=== PATIENT | female | born 1990 | race Caucasian/White ===

== ENCOUNTER 2017-02-21 19:12 | Observation (INO) | payer OTHER, SELFPAY ==
[2017-02-21] MEDS ORDERED: Sodium Chloride 0.9% 1000 ML 1,000 ML IV STA ×2 (19:30→19:45)
[2017-02-21] MEDS ORDERED: Zosyn INJ 4.5 GM in D5w 100ML Mini Bag 100 ML 100 ML IV ONE (19:33)
--- NOTE | 2017-02-21 19:40 | ERPHSYRPT ---
- History of Present Illness Time Seen by Provider: 02/21/17 19:25 Source: patient Exam Limitations: clinical condition Physician History: PATIENT COMPLAINS OF CONFUSION AND DISORIENTATION AFTER USING METHAMPHETAMINE, AND SUBOXONE OVER THE PAST WEEK. HAS MULTIPLE SORES OVER FACE, EARS AND TRUNK FROM PICKING HER SKIN. DENIES COUGH, FEVER OR CHILLS. PATIENT ADMITS TO PRODUCTIVE COUGH YELLOW SPUTUM FOR WEEKS. Timing/Duration: today Severity: moderate Character of Deficits: other (CONFUSION, DISORIENTATION) Deficits: no difficulties Baseline/Normal Cognition: alert oriented x 3 Current Cognition: alert oriented x 3 Baseline Gait: walks w/o assistance Associated Symptoms: confusion (TRANSIENT) Allergies/Adverse Reactions: aspirin Allergy (Mild, Verified 02/21/17 19:44) ibuprofen Allergy (Unknown, Verified 02/21/17 19:44) naproxen sodium [From Aleve] Allergy (Unknown, Verified 02/21/17 19:44) NSAIDS (Non-Steroidal Anti-Inflamma Allergy (Verified 02/21/17 19:44) tramadol HCl [From Ultram] Allergy (Verified 02/21/17 19:44) Home Medications: Alprazolam 1 mg [Xanax 1 mg] 1 mg PO DAILY 02/21/17 [History] Buprenorphine HCl/Naloxone HCl [Suboxone 2 mg-0.5 mg Tablet] 1 each SL DAILY 09/29 [History] Hx Tetanus, Diphtheria Vaccination/Date Given: No Hx Influenza Vaccination/Date Given: No Hx Pneumococcal Vaccination/Date Given: No - Review of Systems Constitutional: No Fever, No Chills Eyes: No Symptoms Ears, Nose, & Throat: No Symptoms Respiratory: No Symptoms, No Cough, No Dyspnea Cardiac: No Symptoms, No Chest Pain, No Edema, No Syncope Abdominal/Gastrointestinal: No Symptoms, No Abdominal Pain, No Nausea, No Vomiting, No Diarrhea Genitourinary Symptoms: No Symptoms, No Dysuria Musculoskeletal: No Symptoms, No Back Pain, No Neck Pain Skin: No Symptoms, No Rash Neurological: Other (CONFUSION, DISORIENTATION), No Dizziness, No Focal Weakness , No Sensory Changes Psychological: No Symptoms Endocrine: No Symptoms All Other Systems: Reviewed and Negative - Past Medical History Pertinent Past Medical History: Yes Neurological History: No Pertinent History ENT History: No Pertinent History Cardiac History: No Pertinent History Respiratory History: No Pertinent History Endocrine Medical History: No Pertinent History Musculoskeletal History: No Pertinent History GI Medical History: Hepatitis History: No Pertinent History Psycho-Social History: No Pertinent History Female Reproductive Disorders: No Pertinent History Other Medical History: OPIATE ADDICTION - Past Surgical History Past Surgical History: Yes Neuro Surgical History: No Pertinent History Cardiac: No Pertinent History Respiratory: No Pertinent History Gastrointestinal: No Pertinent History Genitourinary: No Pertinent History Musculoskeletal: No Pertinent History Female Surgical History: Section - Social History Smoking Status: Current every day smoker How long have you smoked: 10 YEARS Exposure to second hand smoke: Yes Drug Use: bath salts Patient Lives Alone: No - Female History Hx Now: No - Nursing Vital Signs Nursing Vital Signs: Initial Vital Signs Temperature 100.1 F Temperature Source Oral Pulse Rate 144 Respiratory Rate 18 Blood Pressure [] 136/70 Pain Intensity 0 - Chrissy Coma Scale Best Eye Response (Chrissy): (4) open spontaneously Best Verbal Response (Porcupine): (5) oriented Best Motor Response (Porcupine): (6) obeys commands Chrissy Total: 15 - Physical Exam General Appearance: no apparent distress, alert Eye Exam: bilateral eye: PERRL, EOMI, other (MULTIPLE ULCERATONS IN DIFFERENT STAGES OF HEALILNG OVER BILAT AURICLES) Ears, Nose, Throat Exam: normal ENT inspection, moist mucous membranes, other ( ABRASIONS OVER LIPS AND FACE) Neck Exam: normal inspection, non-tender, supple Respiratory: normal breath sounds, lungs clear, airway intact, No respiratory distress Cardiovascular: regular rate/rhythm, tachycardia, No edema Gastrointestinal: soft, normal bowel sounds (NONTENDER), No tenderness, No distention Back Exam: normal inspection, normal range of motion Extremity Exam: other (DIFFUSE ABRASIONS ULCERATIONS, OVER BILAT LEGS SURROUNDING ERYTHEMA), No pedal edema Peripheral Pulses: carotid (R): 2+, carotid (L): 2+, femoral (R): 2+, femoral (L ): 2+, dorsalis-pedis (R): 2+, dorsalis-pedis (L): 2+ 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, 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: normal hearing, tongue midline Coordination/Gait: normal finger to nose, normal gait Motor/Sensory: no motor deficit DTR: bicep (R): 2+, bicep (L): 2+, tricep (R): 2+, tricep (L): 2+, knee (R): 2+ , knee (L): 2+ Skin Exam: normal color, warm, dry, No rash SpO2 Interpretation: normal SpO2: 98 - Course EKG Interpreted by Me: RATE, Sinus Rhythm, Sinus Tach (RATE 127), NORMAL AXIS - Radiology Exams Chest X-ray Interpretation: Interpreted by me (RIGHT LOWER LOBE INFILTRATE) Ordered Tests: Active Orders 24 hr Category Date Time Status Bedrest ROUTINE Activity 02/21/17 22:46 Ordered Admission/Status Order ROUTINE Care 02/21/17 22:46 Ordered Director Of Loss Prevention ROUTINE Care 02/21/17 22:48 Ordered Code Status Order ROUTINE Care 02/21/17 22:46 Ordered EKG-ER Only STAT Care 02/21/17 19:30 Active IV Insertion ROUTINE Care 02/21/17 22:46 Ordered IV Insertion STAT Care 02/21/17 19:30 Active Implement Pneumonia Pathway ROUTINE Care 02/21/17 22:46 Ordered Pulse Oximetry (ED) STAT Care 02/21/17 19:30 Active Vital Signs .q15mx2,q3omx2,q1hx2,[id number] Care 02/21/17 22:46 Ordered Regular Diet Diet 02/21/17 Breakfast Ordered CHEST 1 VIEW (PORTABLE) Stat Exams 02/21/17 19:48 Taken ACETAMINOPHEN Stat Lab 02/21/17 20:00 Completed BLOOD CULTURE Stat Lab 02/21/17 20:00 Received CBC W DIFF Stat Lab 02/21/17 20:00 Completed CMP Stat Lab 02/21/17 20:00 Completed Ethyl Alcohol,Urine Stat Lab 02/21/17 20:35 Completed HCG,QUALITATIVE URINE Stat Lab 02/21/17 20:01 Completed Lactic Acid Stat Lab 02/21/17 20:00 Completed SALICYLATE Stat Lab 02/21/17 20:00 Completed TROPONIN Q3H Lab 02/21/17 20:15 Completed TROPONIN Q3H Lab 02/21/17 23:15 Ordered TROPONIN Q3H Lab 02/22/17 02:15 Ordered TROPONIN Q3H Lab 02/22/17 05:15 Ordered TROPONIN Q3H Lab 02/22/17 08:15 Ordered UA W/ MICROSCOPIC Stat Lab 02/21/17 20:01 Completed Urine Triage Profile Stat Lab 02/21/17 20:01 Completed Transfer Order Routine Transfer 02/21/17 22:46 Ordered Medication Summary Generic Name Dose Route Start Last Admin Trade Name Ewa PRN Reason Stop Dose Admin Acetaminophen 650 mg 02/21/17 22:51 Tylenol 325 Mg PO 03/23/17 22:50 Q4H PRN PRN PAIN AND/OR FEVER Dextrose/Sodium Chloride 1,000 mls @ 150 mls/hr 02/21/17 23:00 Dextrose 5% -0.45 Nacl 1000 Ml IV 03/23/17 22:59 .Q6H40M DIANA Azithromycin 250 mls @ 125 mls/hr 02/22/17 10:00 Zithromax 500 Mg/ 250 Ml Nacl Premix IV 03/24/17 09:59 Q24H10 DIANA Piperacillin Sod/Tazobactam Sod 100 mls @ 100 mls/hr 02/22/17 00:00 Zosyn 3.375gm/100 Ml D5w IV 03/24/17 00:00 Q6HT DIANA Discontinued Medications Generic Name Dose Route Start Last Admin Trade Name Ewa PRN Reason Stop Dose Admin Sodium Chloride 1,000 mls @ 999 mls/hr 02/21/17 19:30 02/21/17 19:59 Sodium Chloride 0.9% 1000 Ml IV 02/21/17 20:30 999 mls/hr .Q1H1M STA Administration Piperacillin Sod/Tazobactam 100 mls @ 100 mls/hr 02/21/17 19:33 02/21/17 20: 00 Sod 4.5 gm/ Dextrose IV 02/21/17 20:32 100 mls/hr STAT ONE Administration Sodium Chloride 1,000 mls @ 999 mls/hr 02/21/17 19:45 02/21/17 21:18 Sodium Chloride 0.9% 1000 Ml IV 02/21/17 20:45 999 mls/hr .Q1H1M STA Administration Sodium Chloride Confirm 02/21/17 19:52 Sodium Chloride 0.9% 1000 Ml Administered 02/21/17 19:53 Dose 1,000 mls @ ud .ROUTE .STK-MED ONE Dextrose Confirm 02/21/17 19:53 D5w 100ml Mini Bag 100 Ml Administered 02/21/17 19:54 Dose 100 mls @ ud IV .STK-MED ONE Sodium Chloride Confirm 02/21/17 21:16 Sodium Chloride 0.9% 1000 Ml Administered 02/21/17 21:17 Dose 1,000 mls @ ud .ROUTE .STK-MED ONE Piperacillin Sod/Tazobactam Sod Confirm 02/21/17 19:53 Zosyn Inj Administered 02/21/17 19:54 Dose 4.5 gm IV .STK-MED ONE Lab/Rad Data: Laboratory Result Diagrams 02/21/17 20:00 02/21/17 20:00 Laboratory Results 02/21/17 02/21/17 02/21/17 Range/Units 20:35 20:15 20:01 WBC (4.0-10.5) K/mm3 RBC (4.1-5.4) M/mm3 Hgb (12.0-16.0) gm/dl Hct (35-47) % MCV (78-100) fl MCH (26-32) pg MCHC (32-36) g/dl RDW (11.5-14.0) % Plt Count (150-450) K/mm3 MPV (6-9.5) fl Gran % (36.0-66.0) % Lymphocytes % (24.0-44.0) % Monocytes % (0.0-12.0) % Eosinophils % (0.00-5.0) % Basophils % (0.0-0.4) % Basophils # (0-0.4) Sodium (136-145) mEq/L Potassium (3.5-5.1) mEq/L Chloride (98-107) mEq/L Carbon Dioxide (21-32) mEq/L Anion Gap (5-15) MEQ/L BUN (9-20) mg/dL Creatinine (0.55-1.30) mg/dl Estimated GFR ML/MIN Glucose (70-110) MG/DL Lactic Acid (0.4-2.0) Calcium (8.5-10.1) mg/dL Total Bilirubin (0.2-1.0) mg/dL AST (15-37) U/L ALT (12-78) U/L Alkaline Phosphatase (46-116) U/L Troponin I < 0.017 (0.000-0.056) ng/ml Serum Total Protein (6.4-8.2) gm/dL Albumin (3.4-5.0) g/dL Ur Collection Type Urine Color (YELLOW) Urine Appearance (CLEAR) Urine pH 5.5 (5-6) Ur Specific [place] (1.005-1.025) Urine Protein (Negative) Urine Glucose (UA) (NEGATIVE) mg/dL Urine Ketones (NEGATIVE) Urine Nitrite (NEGATIVE) Urine Bilirubin (NEGATIVE) Urine Urobilinogen (0-1) mg/dL Urine WBC (Auto) (NEGATIVE) Urine RBC (Auto) (0-5) Bharath/ul Urine Microscopic RBC (0-2) /HPF Urine Microscopic WBC (0-5) /HPF Ur Epithelial Cells (FEW) /HPF Urine Bacteria (NEGATIVE) /HPF Urine Mucus (NEGATIVE) /HPF Urine HCG, Qual NEGATIVE (Negative) Salicylates (2.8-20.0) mg/dl Urine Opiates Level (NEGATIVE) Ur Methadone (NEGATIVE) Acetaminophen (10-30) ug/ml Urine Barbiturates (NEGATIVE) Ur Phencyclidine (PCP) (NEGATIVE) Urine Amphetamine (NEGATIVE) U Benzodiazepine Level (NEGATIVE) Urine Cocaine (NEGATIVE) Urine Marijuana (THC) (NEGATIVE) Urine Ethyl Alcohol 3 (0.00-20) mg/dl Specimen Received 02/21/17 02/21/17 02/21/17 Range/Units 20:01 20:01 20:00 WBC (4.0-10.5) K/mm3 RBC (4.1-5.4) M/mm3 Hgb (12.0-16.0) gm/dl Hct (35-47) % MCV (78-100) fl MCH (26-32) pg MCHC (32-36) g/dl RDW (11.5-14.0) % Plt Count (150-450) K/mm3 MPV (6-9.5) fl Gran % (36.0-66.0) % Lymphocytes % (24.0-44.0) % Monocytes % (0.0-12.0) % Eosinophils % (0.00-5.0) % Basophils % (0.0-0.4) % Basophils # (0-0.4) Sodium (136-145) mEq/L Potassium (3.5-5.1) mEq/L Chloride (98-107) mEq/L Carbon Dioxide (21-32) mEq/L Anion Gap (5-15) MEQ/L BUN (9-20) mg/dL Creatinine (0.55-1.30) mg/dl Estimated GFR ML/MIN Glucose (70-110) MG/DL Lactic Acid 0.9 (0.4-2.0) Calcium (8.5-10.1) mg/dL Total Bilirubin (0.2-1.0) mg/dL AST (15-37) U/L ALT (12-78) U/L Alkaline Phosphatase (46-116) U/L Troponin I (0.000-0.056) ng/ml Serum Total Protein (6.4-8.2) gm/dL Albumin (3.4-5.0) g/dL Ur Collection Type VOID Urine Color DARK YELLOW (YELLOW) Urine Appearance SLIGHTLY CLOUDY (CLEAR) Urine pH 5.5 (5-6) Ur Specific [place] >=1.030 (1.005-1.025) Urine Protein 30 (Negative) Urine Glucose (UA) NEGATIVE (NEGATIVE) mg/dL Urine Ketones SMALL-15 (NEGATIVE) Urine Nitrite NEGATIVE (NEGATIVE) Urine Bilirubin SMALL (NEGATIVE) Urine Urobilinogen 0.2 (0-1) mg/dL Urine WBC (Auto) NEGATIVE (NEGATIVE) Urine RBC (Auto) NEGATIVE (0-5) Bharath/ul Urine Microscopic RBC 2-5 (0-2) /HPF Urine Microscopic WBC 2-5 (0-5) /HPF Ur Epithelial Cells MODERATE (FEW) /HPF Urine Bacteria MANY (NEGATIVE) /HPF Urine Mucus MODERATE (NEGATIVE) /HPF Urine HCG, Qual (Negative) Salicylates (2.8-20.0) mg/dl Urine Opiates Level NEG. (NEGATIVE) Ur Methadone NEG. (NEGATIVE) Acetaminophen (10-30) ug/ml Urine Barbiturates NEG. (NEGATIVE) Ur Phencyclidine (PCP) NEG. (NEGATIVE) Urine Amphetamine POS. (NEGATIVE) U Benzodiazepine Level NEG. (NEGATIVE) Urine Cocaine NEG. (NEGATIVE) Urine Marijuana (THC) NEG. (NEGATIVE) Urine Ethyl Alcohol (0.00-20) mg/dl Specimen Received 02/21/17199902/21/17 02/21/17 Range/Units 20:00 20:00 WBC 10.5 (4.0-10.5) K/mm3 RBC 4.88 (4.1-5.4) M/mm3 Hgb 14.1 (12.0-16.0) gm/dl Hct 43.5 (35-47) % MCV 89.1 (78-100) fl MCH 28.9 (26-32) pg MCHC 32.4 (32-36) g/dl RDW 14.2 H (11.5-14.0) % Plt Count 260 (150-450) K/mm3 MPV 9.6 H (6-9.5) fl Gran % 73.9 H (36.0-66.0) % Lymphocytes % 18.4 L (24.0-44.0) % Monocytes % 7.2 (0.0-12.0) % Eosinophils % 0.2 (0.00-5.0) % Basophils % 0.3 (0.0-0.4) % Basophils # 0.03 (0-0.4) Sodium 148 H (136-145) mEq/L Potassium 4.0 (3.5-5.1) mEq/L Chloride 108 H (98-107) mEq/L Carbon Dioxide 27.0 (21-32) mEq/L Anion Gap 16.8 H (5-15) MEQ/L BUN 13 (9-20) mg/dL Creatinine 0.86 (0.55-1.30) mg/dl Estimated GFR > 60 ML/MIN Glucose 87 (70-110) MG/DL Lactic Acid (0.4-2.0) Calcium 9.4 (8.5-10.1) mg/dL Total Bilirubin 0.5 (0.2-1.0) mg/dL AST 51 H (15-37) U/L ALT 69 (12-78) U/L Alkaline Phosphatase 84 (46-116) U/L Troponin I (0.000-0.056) ng/ml Serum Total Protein 7.9 (6.4-8.2) gm/dL Albumin 4.6 (3.4-5.0) g/dL Ur Collection Type Urine Color (YELLOW) Urine Appearance (CLEAR) Urine pH (5-6) Ur Specific [place] (1.005-1.025) Urine Protein (Negative) Urine Glucose (UA) (NEGATIVE) mg/dL Urine Ketones (NEGATIVE) Urine Nitrite (NEGATIVE) Urine Bilirubin (NEGATIVE) Urine Urobilinogen (0-1) mg/dL Urine WBC (Auto) (NEGATIVE) Urine RBC (Auto) (0-5) Bharath/ul Urine Microscopic RBC (0-2) /HPF Urine Microscopic WBC (0-5) /HPF Ur Epithelial Cells (FEW) /HPF Urine Bacteria (NEGATIVE) /HPF Urine Mucus (NEGATIVE) /HPF Urine HCG, Qual (Negative) Salicylates < 2.8 L (2.8-20.0) mg/dl Urine Opiates Level (NEGATIVE) Ur Methadone (NEGATIVE) Acetaminophen < 2.0 L (10-30) ug/ml Urine Barbiturates (NEGATIVE) Ur Phencyclidine (PCP) (NEGATIVE) Urine Amphetamine (NEGATIVE) U Benzodiazepine Level (NEGATIVE) Urine Cocaine (NEGATIVE) Urine Marijuana (THC) (NEGATIVE) Urine Ethyl Alcohol (0.00-20) mg/dl Specimen Received - Progress Progress Note: 02/21/17 19:49 PATIENT PLACED ONTO SEPTIC PROTOCOL ADMINISTERED IV NORMAL SALINE 30ML/KG- 2 LITERS OVER 2 HOURS, AFTER 2 SETS OF BLOOD CULTURES, GIVEN ZOSYN 4.5GM IVPB Discussed with : Sergey Will see patient in: hospital (observation) (AT 2245) - Departure Time of Disposition: 22:55 Departure Disposition: Observation Clinical Impression: DRUG OVERDOSE, PNEUMONIA, GENERALIZED ABRASIONS Condition: Stable Critical Care Time: No Referrals: ANA LAURA KELLY [Primary Care Provider] -
[2017-02-21] MEDS ORDERED: Sodium Chloride 0.9% 1000 ML 1,000 ML ONE ×2 (19:52→21:16)
[2017-02-21] MEDS ORDERED: D5w 100ML Mini Bag 100 ML 100 ML IV ONE (19:53)
[2017-02-21] MEDS ORDERED: Zosyn INJ IV ONE (19:53)
[2017-02-21 20:05] LABS: BASOPHIL % 0.3 % (0.0-0.4); Eosinophil % 0.2 % (0.00-5.0); Granulocytes % 73.9 % (36.0-66.0); Lymphocytes % 18.4 % (24.0-44.0); Mean Cell Volume 89.1 fl (78-100); Mean Corpuscular Hemoglobin 28.9 pg (26-32); Mean Platelet Volume 9.6 fl (6-9.5); Monocytes % 7.2 % (0.0-12.0); Platelet Count 260 K/mm3 (150-450); Red Blood Count 4.88 M/mm3 (4.1-5.4); Red Cell Distribution Width 14.2 % (11.5-14.0); White Blood Count 10.5 K/mm3 (4.0-10.5)
[2017-02-21 20:23] LABS: Collection Type VOID
[2017-02-21 20:24] LABS: Bacteria MANY /HPF (NEGATIVE); COMPLETE URINE MICROSCOPIC? YES; Epithelial Cells MODERATE /HPF (FEW); Mucus MODERATE /HPF (NEGATIVE); Ph 5.5 (5-6)
[2017-02-21 20:29] LABS: ALBUMIN 4.6 g/dL (3.4-5.0); ALKALINE PHOSPHATASE 84 U/L (46-116); ANION GAP 16.8 MEQ/L (5-15); BILIRUBIN,TOTAL 0.5 mg/dL (0.2-1.0); BLOOD UREA NITROGEN 13 mg/dL (9-20); CHLORIDE 108 mEq/L (98-107); Glucose 87 MG/DL (70-110); SGOT/AST 51 U/L (15-37); SGPT/ALT 69 U/L (12-78); SODIUM 148 mEq/L (136-145); Total Protein 7.9 gm/dL (6.4-8.2)
[2017-02-21 20:31] LABS: ACETAMINOPHEN < 2.0 ug/ml (10-30)
[2017-02-21] MEDS ORDERED: TYLENOL 325 MG PO PRN (22:51)
[2017-02-21] MEDS: Dextrose 5% -0.45 NaCl 1000 ML 1,000 ML IV SCH (23:21)
[2017-02-21] MEDS: Ativan 2 MG/1 ML VIAL IV PRN (23:26)
[2017-02-22] MEDS: Zosyn 3.375GM/100 Ml D5W 100 ML IV SCH ×2 (00:59→06:45)
[2017-02-22] MEDS: Ativan 2 MG/1 ML VIAL IV PRN ×2 (04:02→07:25)
[2017-02-22] MEDS: Dextrose 5% -0.45 NaCl 1000 ML 1,000 ML IV SCH ×2 (07:42→14:30)
--- NOTE | 2017-02-22 08:52 | XRAY ---
Indication: Cough. Comparison: June 18, 2013. Single AP chest today demonstrates normal heart, lungs, and bony thorax.
--- NOTE | 2017-02-22 09:23 | PCM.HP ---
History of Present Illness - Chief Complaint Chief Complaint: polysubstance abuse History of Present Illness: is a 26 year old female patient of Dr Angela'luke who is unavailable today. She has an apparent longstanding history of drug abuse. was brought to ER last night due to concern of syncope. She states she is on suboxone from a Dr Melvin. She is covered in excoriations and abrasions and is clearly agitated from her admitted methamphetamine abuse. She is unable to maintain a reasonable train of thought and unable to answer most of my questions - Review of Systems Constitutional: No Fever, No Chills Respiratory: No Cough, No Short Of Breath Cardiac: No Chest Pain, No Edema, No Syncope Psychological: Drug Abuse, No Suicidal Ideations, No Homicidal Ideations All Other Systems: Reviewed and Negative Medications & Allergies Home Medications: Home Medication List Alprazolam 1 mg [Xanax 1 mg] 1 mg PO DAILY 02/21/17 [History Confirmed 09/29] Buprenorphine HCl/Naloxone HCl [Suboxone 2 mg-0.5 mg Tablet] 1 each SL DAILY 09/29 [History Confirmed 02/21/17] Allergies/Adverse Reactions: Allergies Allergy/AdvReac Type Severity Reaction Status Date / Time aspirin Allergy Mild Verified 02/21/17 19:44 ibuprofen Allergy Unknown Verified 02/21/17 19:44 naproxen sodium [From Aleve] Allergy Unknown Verified 02/21/17 19:44 NSAIDS (Non-Steroidal Allergy Verified 02/21/17 19:44 Anti-Inflamma tramadol HCl [From Ultram] Allergy Verified 02/21/17 19:44 - Past Medical History Past Medical History: Yes Neurological History: No Pertinent History ENT History: No Pertinent History Cardiac History: No Pertinent History Respiratory History: Pneumonia Endocrine Medical History: No Pertinent History Musculoskelatal History: No Pertinent History GI Medical History: Hepatitis History: No Pertinent History Pyscho-Social History: No Pertinent History Reproductive Disorders: No Pertinent History Comment: HEP C, OPIATE ADDICTION - Female History Hx Last Menstrual Period: end of january Are you now?: No - Past Surgical History Past Surgical History: Yes Neuro Surgical History: No Pertinent History Cardiac History: No Pertinent History Respiratory Surgery: No Pertinent History GI Surgical History: No Pertinent History Genitourinary Surgical Hx: No Pertinent History Musculskeletal Surgical Hx: No Pertinent History Female Surgical History: Section - Social History Smoking Status: Current every day smoker How long have you smoked: 10 YEARS Exposure to second hand smoke: Yes Alcohol: None Drug Use: bath salts, methamphetamines - Physical Exam Vital Signs: Vital Signs - 24 hr Temp Pulse Resp BP Pulse Ox 02/22/17 08:30 150 H 02/22/17 08:00 98.3 F 137 H 20 107/92 100 02/22/17 04:00 98.1 F 99 H 16 112/78 95 02/22/17 01:55 100 H 14 110/70 95 02/22/17 01:16 98.6 F 102 H 15 02/22/17 00:28 100.4 F 122 H 19 124/78 95 02/22/17 00:00 115 H 15 02/21/17 22:54 98 02/21/17 21:12 144 H 18 136/70 100 02/21/17 19:58 98 02/21/17 19:21 100.1 F 147 H 24 116/92 98 General Appearance: mild distress, anxiety, other (agitated) Neurologic Exam: alert, disoriented, agitation, intoxicated appearance, other ( moves all extremities equally) Respiratory Exam: normal breath sounds, lungs clear, No respiratory distress Cardiovascular Exam: tachycardia Gastrointestinal/Abdomen Exam: soft Skin Exam: other (excoriations, superficial scabbed areas on most of her body, minor bruising present as well. face and ears involved) Results - Labs Lab/Micro Results: Lab Results-Last 24 Hours 02/22/17 02/22/17 Range/Units 02:41 05:15 Troponin I < 0.017 < 0.017 (0.000-0.056) ng/ml - Other Procedures and Tests Respiratory Therapy 02/22/17 00:38 Smoking Cessation Education ONCE Assessment/Plan (1) Agitation Current Visit: Yes Status: Acute Assessment & Plan: patient is disoriented and a danger to herself, unable to be released to her own care. will pursue emergency nursing home, she has a card for appt with Dr Melvin in [place] today that she insists she must leave to attend but again she is clearly in no shape to be under her own care at this time and has no one available to care for her. (2) Methamphetamine abuse Current Visit: Yes Status: Acute Assessment & Plan: will obtain psych consult when agitation and drug effect improve Code(s): F15.10 - OTHER STIMULANT ABUSE, UNCOMPLICATED (3) Polysubstance (including opioids) dependence with physiol dependence Current Visit: Yes Status: Acute Code(s): F19.20 - OTHER PSYCHOACTIVE SUBSTANCE DEPENDENCE, UNCOMPLICATED
[2017-02-22] MEDS ORDERED: Geodon 20 MG INJ IM PRN (09:24)
[2017-02-22] MEDS ORDERED: Zithromax 500 MG/ 250 ML NaCl Premix 250 ML IV SCH (10:00)
[2017-02-22] MEDS: KEFLEX 500 MG PO SCH ×3 (10:08→17:31)
[2017-02-22 18:24] VITALS: BP 97/51; PULSE 91; O2SAT 96
== END 2017-02-22 18:32 | disposition short-term general hospital (02) ==
LOC: ED 19:12 → ICU 22:57
PROVIDERS: ADMIT Family Medicine; ATTEND Family Medicine
DX: R45.1 Restlessness and agitation (principal); F15.10 Other stimulant abuse, uncomplicated; F19.20 Other psychoactive substance dependence, uncomplicated; Z72.0 Tobacco use; B19.20 Unspecified viral hepatitis C without hepatic coma
CPT/HCPCS: 36000; 36415; 71010; 80053; 80307; 80320; 81000; 82962; 83605; 83986; 84484; 84703; 85025; 87040; 93005; 93041; 93268; 96360; 96361; 96365; 99285; G0378; G0481; J2060; J2543; J3486; A9270-GY

== ENCOUNTER 2017-03-05 05:18 | Emergency (ER) | payer OTHER, SELFPAY ==
[2017-03-05] MEDS ORDERED: Sodium Chloride 0.9% 1000 ML 1,000 ML IV STA ×2 (05:32→06:29)
--- NOTE | 2017-03-05 05:32 | ERPHSYRPT ---
- History of Present Illness Source: patient, EMS Exam Limitations: no limitations Timing/Duration: today Severity: moderate Character of Deficits: none Deficits: no difficulties Baseline/Normal Cognition: alert oriented x 3 Current Cognition: alert oriented x 3 Baseline Gait: walks w/o assistance Associated Symptoms: confusion (resolved now , but di dnot recall how she got into peoples home earlier and thinks she was dreaming or sleep walking.) Hx Tetanus, Diphtheria Vaccination/Date Given: No Hx Influenza Vaccination/Date Given: No Hx Pneumococcal Vaccination/Date Given: No - History of Present Illness Time Seen by Provider: 03/05/17 05:27 Physician History: pt is 26 year old found in someone elses home tonight and they brought her to fire station she is known to EMS as having previously used drugs and is being treated for this ; no current complaints at this time (KRYSTLE MCHUGH) Allergies/Adverse Reactions: aspirin Allergy (Mild, Verified 03/05/17 05:29) ibuprofen Allergy (Unknown, Verified 03/05/17 05:29) naproxen sodium [From Aleve] Allergy (Unknown, Verified 03/05/17 05:29) NSAIDS (Non-Steroidal Anti-Inflamma Allergy (Verified 03/05/17 05:29) tramadol HCl [From Ultram] Allergy (Verified 03/05/17 05:29) Home Medications: Alprazolam 1 mg [Xanax 1 mg] 1 mg PO DAILY 02/21/17 [History] Buprenorphine HCl/Naloxone HCl [Suboxone 2 mg-0.5 mg Tablet] 1 each SL DAILY 09/29 [History] Quetiapine Fumarate [Seroquel] 100 mg PO HS 03/05/17 [History] - Review of Systems Constitutional: No Fever, No Chills Eyes: No Symptoms Ears, Nose, & Throat: No Symptoms Respiratory: No Cough, No Dyspnea Cardiac: No Chest Pain, No Edema, No Syncope Abdominal/Gastrointestinal: No Abdominal Pain, No Nausea, No Vomiting, No Diarrhea Genitourinary Symptoms: No Dysuria Musculoskeletal: No Back Pain, No Neck Pain Skin: No Rash Neurological: No Dizziness, No Focal Weakness, No Sensory Changes Psychological: No Symptoms Endocrine: No Symptoms All Other Systems: Reviewed and Negative - Past Medical History Pertinent Past Medical History: Yes Neurological History: No Pertinent History ENT History: No Pertinent History Cardiac History: No Pertinent History Respiratory History: Pneumonia Endocrine Medical History: No Pertinent History Musculoskeletal History: No Pertinent History GI Medical History: Hepatitis History: No Pertinent History Psycho-Social History: No Pertinent History Female Reproductive Disorders: No Pertinent History Other Medical History: HEP C, OPIATE ADDICTION - Past Surgical History Past Surgical History: Yes Neuro Surgical History: No Pertinent History Cardiac: No Pertinent History Respiratory: No Pertinent History Gastrointestinal: No Pertinent History Genitourinary: No Pertinent History Musculoskeletal: No Pertinent History Female Surgical History: Section - Social History Smoking Status: Current every day smoker How long have you smoked: 10 YEARS Exposure to second hand smoke: Yes Drug Use: bath salts, methamphetamines Patient Lives Alone: No - Female History Hx Now: No - Cedar Coma Scale Best Eye Response (Chrissy): (4) open spontaneously Best Verbal Response (Cedar): (5) oriented Best Motor Response (Cedar): (6) obeys commands Cedar Total: 15 - Physical Exam General Appearance: no apparent distress, alert Eye Exam: bilateral eye: PERRL, EOMI Ears, Nose, Throat Exam: normal ENT inspection, moist mucous membranes Neck Exam: normal inspection, non-tender, supple Respiratory: normal breath sounds, lungs clear, airway intact, No respiratory distress Cardiovascular: regular rate/rhythm, No edema Gastrointestinal: soft, No tenderness, No distention Back Exam: normal inspection Extremity Exam: normal inspection, No pedal edema 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, 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 Coordination/Gait: normal finger to nose, normal gait Skin Exam: normal color, warm, dry, No rash - Course Nursing assessment & vital signs reviewed: Yes EKG Interpreted by Me: Sinus Tach, NORMAL AXIS, Non-specific ST Changes - Progress Progress: improved, re-examined Counseled pt/family regarding: drug and/or alcohol abuse, lab results, diagnosis , need for follow-up - Progress Progress Note: 03/05/17 06:37 pt is clinically sober now with normal mental status and no suicidal or homicidal ideation; source of temporary confusion is attributed to drug use detected on drug screen and no additional organic cause found. Pt is referred to drug tx , law enforcement consulted and advised, and pt to also f/u PCP for hematuria to recheck and elevated LFT , and is advised there still could be undetected pathology evolving and understands importance of f/u and need to return if symptoms recur; no driving pending neuro w/u. 03/05/17 06:44 elevated HR is similar to previous and improving with hydration. no recent trauma , some old abrasions no palpable radha stepoff or tenderness , given tet update; (KRYSTLE MCHUGH) - Departure Time of Disposition: 06:41 Departure Disposition: Home Critical Care Time: No - Departure Clinical Impression: transient confusion - resolved ; , Hx of mixed drug abuse Condition: Good Referrals: ANA LAURA KELLY [Primary Care Provider] - Instructions: Drug Abuse and Drug Addiction, Hematuria Additional Instructions: followup with your dr to recheck urine for blood; no driving until neuro workup completed to exclude some type of seizure disorder; return meantime if any problems or concerns; continue in drug rehab treatment program;
[2017-03-05] MEDS ORDERED: Sodium Chloride 0.9% 1000 ML 1,000 ML ONE ×2 (05:36→06:31)
[2017-03-05 06:15] LABS: COMPLETE URINE MICROSCOPIC? YES; Collection Type VOID
[2017-03-05 06:19] LABS: Bacteria FEW /HPF (NEGATIVE); Epithelial Cells FEW /HPF (FEW)
[2017-03-05 06:20] LABS: BASOPHIL % 0.3 % (0.0-0.4); Eosinophil % 0.7 % (0.00-5.0); Granulocytes % 76.4 % (36.0-66.0); Lymphocytes % 15.8 % (24.0-44.0); Mean Corpuscular Hemoglobin 29.4 pg (26-32); Mean Platelet Volume 9.4 fl (6-9.5); Monocytes % 6.8 % (0.0-12.0); Platelet Count 263 K/mm3 (150-450); Red Blood Count 4.36 M/mm3 (4.1-5.4); White Blood Count 9.9 K/mm3 (4.0-10.5)
[2017-03-05 06:23] LABS: ALBUMIN 4.2 g/dL (3.4-5.0); ALKALINE PHOSPHATASE 73 U/L (46-116); ANION GAP 17.7 MEQ/L (5-15); BILIRUBIN,TOTAL 0.6 mg/dL (0.2-1.0); CHLORIDE 101 mEq/L (98-107); Carbon Dioxide 24.2 mEq/L (21-32); Glucose 85 MG/DL (70-110); Potassium 3.9 mEq/L (3.5-5.1); SGOT/AST 49 U/L (15-37); SGPT/ALT 46 U/L (12-78); SODIUM 139 mEq/L (136-145); Total Protein 7.3 gm/dL (6.4-8.2)
[2017-03-05 06:30] LABS: BLOOD UREA NITROGEN 13 mg/dL (9-20)
[2017-03-05 06:31] LABS: ACETAMINOPHEN < 2.0 ug/ml (10-30)
[2017-03-05] MEDS ORDERED: Adacel Vial IM ONE ×2 (06:45→06:48)
[2017-03-05] MEDS ORDERED: Ativan 1 MG PO ONE (06:48)
[2017-03-05] MEDS ORDERED: Ativan 1 MG ONE (06:53)
[2017-03-05 07:46] VITALS: BP 118/74; PULSE 135; O2SAT 99
== END 2017-03-05 08:05 | disposition home or self-care (01) ==
LOC: ED 05:18
DX: R41.0 Disorientation, unspecified (principal); F19.21 Other psychoactive substance dependence, in remission
CPT/HCPCS: 36000; 36415; 80053; 80307; 80320; 81000; 83605; 83986; 84703; 85025; 90471; 90715; 93005; 93041; 96360; 96361; 99284; G0481; A9270-GY

== ENCOUNTER 2020-04-18 20:34 | Emergency (ER) | payer OTHER, SELFPAY ==
[2012-06-29 13:25] VITALS: BP 112/68
--- NOTE | 2020-04-18 20:40 | ERPHSYRPT ---
- History of Present Illness Time Seen by Provider: 04/18/20 20:40 Source: patient Exam Limitations: no limitations Physician History: Patient stated that she has waited too long. She no longer wants to be evaluated. Patient stated that she had been here over 2 hours. Several patients came in in a short period of time and patient was brought back in an hour and 10 minutes. Allergies/Adverse Reactions: aspirin Allergy (Mild, Verified 03/05/17 05:29) ibuprofen Allergy (Unknown, Verified 03/05/17 05:29) naproxen sodium [From Aleve] Allergy (Unknown, Verified 03/05/17 05:29) NSAIDS (Non-Steroidal Anti-Inflamma Allergy (Verified 03/05/17 05:29) tramadol HCl [From Ultram] Allergy (Verified 03/05/17 05:29) Home Medications: Alprazolam 1 mg [Xanax 1 mg] 1 mg PO DAILY 02/21/17 [History] Buprenorphine HCl/Naloxone HCl [Suboxone 2 mg-0.5 mg Tablet] 1 each SL DAILY 09/29 [History] Quetiapine Fumarate [Seroquel] 100 mg PO HS 03/05/17 [History] Hx Tetanus, Diphtheria Vaccination/Date Given: No Hx Influenza Vaccination/Date Given: No Hx Pneumococcal Vaccination/Date Given: No - Past Medical History Pertinent Past Medical History: Yes Neurological History: No Pertinent History ENT History: No Pertinent History Cardiac History: No Pertinent History Respiratory History: Pneumonia Endocrine Medical History: No Pertinent History Musculoskeletal History: No Pertinent History GI Medical History: Hepatitis History: No Pertinent History Psycho-Social History: No Pertinent History Female Reproductive Disorders: No Pertinent History Other Medical History: HEP C, OPIATE ADDICTION - Past Surgical History Past Surgical History: Yes Neuro Surgical History: No Pertinent History Cardiac: No Pertinent History Respiratory: No Pertinent History Gastrointestinal: No Pertinent History Genitourinary: No Pertinent History Musculoskeletal: No Pertinent History Female Surgical History: Section - Social History Smoking Status: Current every day smoker How long have you smoked: 10 YEARS Exposure to second hand smoke: Yes Drug Use: bath salts, methamphetamines Patient Lives Alone: No - Departure Departure Disposition: Left without being seen Clinical Impression: Abdominal pain affecting Clinical Impression: (Ruled Out): Abdominal pain Condition: Stable Critical Care Time: No
== END 2020-04-18 21:30 | disposition left against medical advice (07) ==
LOC: ED 20:34
DX: O26.891 Other specified pregnancy related conditions, first trimester (principal); Z3A.08 8 weeks gestation of pregnancy; R10.9 Unspecified abdominal pain